=== PATIENT | female | born 1960 | race Caucasian/White ===

== ENCOUNTER 2016-09-09 09:00 | Day surgery (SDC) | payer BC ==
[2016-09-02 11:14] VITALS: BMI 31.4
--- NOTE | 2016-09-08 14:47 | HP ---
DATE OF ADMISSION: 09/09/2016 Siobhan Rodrigues is a 55-year-old patient seen with progressive symptomatic right carpal tunnel syndrome. After having treatment options discussed, she elected to proceed with decompression of right median nerve. Consent was obtained. Her past medical history is hypertension, gastroesophageal reflux disease. Past surgical history is tubal ligation, section, wisdom teeth extraction. Daily medications are: 1. Lisinopril-hydrochlorothiazide. 2. Tramadol. 3. Zantac. Allergies are IODINE, PENICILLIN, CECLOR, PREDNISONE. 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 Physical evaluation of the right hand: There is a positive carpal compression and carpal Tinel's causing numbness, tingling into the median nerve distribution. She has good range of motion of her wrist. Good perfusion distally, good radial pulse is present. Radiographs of her right wrist and hand reveal some mild osteoarthritic changes. An EMG of the right upper extremity revealed carpal tunnel syndrome. IMPRESSION: Right carpal tunnel syndrome. PLAN: Decompression of right median nerve.
[~2016-09-09 09:00] MED LIST: CLINDAMYCIN 900 MG in DEXTROSE 5% IN WATER 50 ML IVPB ONE; HYDROmorphone 1 MG/ML 1 ML SYRINGE IVP PRN; LACTATED RINGERS 1,000 ML IV SCH; MIDAZOLAM 2 MG/2 ML VIAL IV PRN; ONDANSETRON 4 MG/2 ML VIAL IVP ONE
[2016-09-09] MEDS ORDERED: LIDOCAINE 1% 20 ML VIAL (10MG/ML) FOR IV START INTRADERMA ONE (09:23)
[2016-09-09 09:31] VITALS: TEMP 98.5
[2016-09-09] MEDS ORDERED: SCOPOLAMINE 1.5MG/72HR PATCH TRANSDERM ONE (09:45)
[2016-09-09] MEDS ORDERED: CLINDAMYCIN 150 MG/ML 6 ML VIAL ONE (10:28)
[2016-09-09] MEDS ORDERED: DEXTROSE 5% IN WATER 50 ML BAG ONE (10:28)
[2016-09-09] MEDS ORDERED: PROPOFOL 10 MG/ML 20 ML VIAL IV ONE (10:28)
[2016-09-09] MEDS ORDERED: fentaNYL (PF) 50 MCG/ML 2 ML AMP ONE (10:28)
[2016-09-09] MEDS ORDERED: MIDAZOLAM 2 MG/2 ML VIAL ONE (10:28)
[2016-09-09] MEDS ORDERED: BUPIVACAINE (PF) 0.25% 30 ML VIAL SQ ONE (10:36)
--- NOTE | 2016-09-09 10:54 | P.OP ---
Date of Procedure: 09/09/16 Preoperative Diagnosis: Right carpal tunnel syndrome Postoperative Diagnosis: Same Procedure(s) Performed: Decompression right median nerve Anesthesia: MAC Surgeon: Daryrn Wild Estimated Blood Loss (ml): 1 Pathology: none sent Condition: stable Disposition: PACU Indications for Procedure: Patient seen with symptomatic right carpal tunnel syndrome. After having treatment options discussed, she elected to proceed with decompression right median nerve. Description of Procedure: Patient was taken to the operative suite. Patient underwent IV sedation by the department of anesthesia. A well-padded tourniquet was placed along the proximal right upper extremity. The right upper extremity was prepped and draped in the normal sterile orthopedic fashion. The proposed incision site was infiltrated with 10 mL quarter percent plain Marcaine. When sufficient local analgesia was noted the extremity was elevated and tourniquet insufflated to 250. I made an incision beginning at the distal volar wrist crease extending distally approximately 3 cm in line with the fourth metacarpal sharply through skin. Dissection was taken down through the subcu soft tissues down through the palmar fascia to the transverse carpal ligament. I incised the transverse carpal ligament. I made sure the release was completed proximally and distally blunt Metzenbaums. We had complete release of the median nerve. There was good hemostasis. The margins approximated suture. Sterile dressings were applied followed by loose web roll and Domenic bandage. The tourniquet was released with immediate capillary refill noted of all digits. Patient was taken to recovery in stable and satisfactory condition having entire procedure well.
[2016-09-09 11:49] VITALS: RESP 18
[2016-09-09 12:02] VITALS: BP 113/72; PULSE 63
== END 2016-09-09 12:18 | disposition home or self-care (01) ==
LOC: OR 09:00
PROVIDERS: ATTEND Orthopaedic Surgery
DX: G56.01 Carpal tunnel syndrome, right upper limb (principal); I10 Essential (primary) hypertension; K21.9 Gastro-esophageal reflux disease without esophagitis; Z88.0 Allergy status to penicillin; Z88.1 Allergy status to other antibiotic agents; Z91.041 Radiographic dye allergy status; Z88.8 Allergy status to other drugs, medicaments and biological substances; Z79.891 Long term (current) use of opiate analgesic; Z79.899 Other long term (current) drug therapy; Z98.51 Tubal ligation status
CPT/HCPCS: 64721; 81025; J2250; J2405; J3010; J2704; 99152; 99153

== ENCOUNTER → 2016-10-19 | Outpatient (CLI) | payer BC ==
--- NOTE | 2016-10-19 11:25 | MM ---
Reason for exam: additional evaluation requested from prior study. Last mammogram was performed 1 year and 1 month ago. History: Patient is postmenopausal. Physical Findings: Nurse did not find any significant physical abnormalities on exam. MG Diagnostic Mammo w CAD DEVAN Bilateral CC and MLO view(s) were taken. Prior study comparison: September 25, 2015, bilateral MG screening mammo w CAD. There are scattered fibroglandular densities. There is no discrete abnormality. These results were verbally communicated with the patient and result sheet given to the patient on 10/19/16. ASSESSMENT: Negative, BI-RAD 1 RECOMMENDATION: Routine screening mammogram of both breasts in 1 year.
== END | disposition home or self-care (01) ==
LOC: RADMAMWWP 10:12
PROVIDERS: ATTEND Family Medicine
DX: R92.8 Other abnormal and inconclusive findings on diagnostic imaging of breast (principal)

== ENCOUNTER → 2016-12-13 | Outpatient (CLI) | payer BC ==
[2016-12-13 14:04] LABS: Basophils % (A) 1 %; CH 27.9; CHCM 32.2; Eosinophils # (A) 0.1 k/uL (0-0.7); Eosinophils % (A) 1 %; HCT 36.9 % (34.0-46.0); HDW 2.47; HGB 12.4 gm/dL (11.4-16.0); Luc # (Auto) 0.13; Luc % (Auto) 3; Lymphocytes # (A) 1.7 k/uL (1.0-4.8); Lymphocytes % (A) 33 %; MCH 29.3 pg (25.0-35.0); MCHC 33.6 g/dL (31.0-37.0); MCV 87.1 fL (80.0-100.0); Mean Platelet Volume 7.3; Monocytes # (A) 0.2 k/uL (0-1.0); Monocytes % (A) 4 %; Neutrophils # (A) 2.9 k/uL (1.3-7.7); Neutrophils % (A) 59 %; RBC 4.23 m/uL (3.80-5.40); RDW 13.6 % (11.5-15.5); WBC (Perox) 5.49
== END | disposition home or self-care (01) ==
LOC: LABWHC1 13:17
PROVIDERS: ATTEND Orthopaedic Surgery
DX: Z01.812 Encounter for preprocedural laboratory examination (principal)
CPT/HCPCS: 36415; 85025

== ENCOUNTER 2017-01-06 08:02 | Day surgery (SDC) | payer BC ==
--- NOTE | 2017-01-05 17:27 | HP ---
DATE OF ADMISSION: 01/06/2017 Siobhan Rodrigues is a 56-year-old patient seen with symptomatic left carpal tunnel syndrome. We discussed treatment options. She elected to proceed with decompression of the left median nerve. Consent was obtained. Past medical history is hypertension. PAST SURGICAL HISTORY: Tubal ligation, section. DAILY MEDICATIONS: 1. Lisinopril/hydrochlorothiazide. 2. Tramadol. 3. Zantac. ALLERGIES: 1. IODINE. 2. PENICILLIN. 3. CECLOR. 4. PREDNISONE. SOCIAL HISTORY: Patient denies tobacco use. PHYSICAL EVALUATION OF LEFT HAND: She has good range of motion of the wrist and digits. No tenderness along the A1 mike areas. Positive carpal compression and carpal Tinel's causing numbness and tingling throughout the median nerve distribution. Good radial pulse is present. Radiographs of the left hand revealed mild osteoarthritis. EMG left upper extremity revealed carpal tunnel syndrome. IMPRESSION: Left carpal tunnel syndrome. PLAN: Decompression of the left median nerve.
[~2017-01-06 08:02] MED LIST changes: +CLINDAMYCIN 600 MG in DEXTROSE 5% IN WATER 50 ML IVPB ONE; -CLINDAMYCIN 900 MG in DEXTROSE 5% IN WATER 50 ML IVPB ONE; +LIDOCAINE 1% 20 ML VIAL (10MG/ML) FOR IV START INTRADERMA PRN; +SCOPOLAMINE 1.5MG/72HR PATCH TRANSDERM ONE
[2017-01-06 08:16] VITALS: RESP 16; TEMP 98.1
[2017-01-06] MEDS ORDERED: BUPIVACAINE (PF) 0.25% 30 ML VIAL SQ ONE (10:31)
[2017-01-06] MEDS ORDERED: fentaNYL (PF) 50 MCG/ML 2 ML AMP ONE (10:31)
[2017-01-06] MEDS ORDERED: LIDOCAINE 1% INJ 10MG/ML (20 ML MDV) ONE ×2 (10:31)
[2017-01-06] MEDS ORDERED: MIDAZOLAM 2 MG/2 ML VIAL ONE (10:31)
[2017-01-06] MEDS ORDERED: PROPOFOL 10 MG/ML 20 ML VIAL IV ONE (10:31)
--- NOTE | 2017-01-06 11:08 | P.OP ---
Date of Procedure: 01/06/17 Preoperative Diagnosis: Left carpal tunnel syndrome Postoperative Diagnosis: Left carpal tunnel syndrome Procedure(s) Performed: Decompression left median nerve Anesthesia: MAC, local Surgeon: Darryn Wild Estimated Blood Loss (ml): 1 Pathology: none sent Condition: stable Disposition: PACU Indications for Procedure: 56-year-old patient seen with symptomatic left carpal tunnel syndrome. After having treatment options discussed, she elected to proceed with decompression left median nerve. Operative Findings: see description of procedure Description of Procedure: The patient was taken to the operative suite. The patient underwent IV sedation by the department of anesthesia. A well-padded tourniquet was placed proximal left upper extremity. The left upper extremity was prepped and draped in the normal sterile orthopedic fashion. The patient received preoperative IV antibiotics. The proposed incision site was infiltrated with 10 mL quarter percent plain Marcaine. After appropriate analgesia was noted the tourniquet was insufflated to 250. I now made an incision beginning at the distal volar wrist crease extending 2.5 cm distally along the line of the fourth metacarpal. I dissected down through the subcutaneous soft tissues down to the palmar fascia. I dissected through the palmar fascia to the transverse carpal ligament. I now released the transverse carpal ligament centrally. I completed the release proximally and distally with blunt Metzenbaums. We had good complete decompression of the nerve and complete release of the transverse carpal ligament. There was good hemostasis. The wound was irrigated. The skin margins were approximate nylon suture. Sterile dressings were applied. Sterile web roll and Domenic bandage were applied. The tourniquet was released noting immediate capillary refill of all digits. The patient was awakened and transferred to recovery in stable condition.
[2017-01-06 11:35] VITALS: BP 106/65; PULSE 61
== END 2017-01-06 11:58 | disposition home or self-care (01) ==
LOC: OR 08:02
PROVIDERS: ATTEND Orthopaedic Surgery
DX: G56.02 Carpal tunnel syndrome, left upper limb (principal); I10 Essential (primary) hypertension; K21.9 Gastro-esophageal reflux disease without esophagitis; Z79.891 Long term (current) use of opiate analgesic; Z79.899 Other long term (current) drug therapy; Z88.1 Allergy status to other antibiotic agents; Z88.0 Allergy status to penicillin; Z88.8 Allergy status to other drugs, medicaments and biological substances; Z91.013 Allergy to seafood
CPT/HCPCS: 64721; J2250; J2405; J2001; J3010; J2704

== ENCOUNTER → 2017-11-04 | Outpatient (CLI) | payer BC ==
--- NOTE | 2017-11-04 11:29 | XR ---
EXAMINATION TYPE: XR Hip Complete LT DATE OF EXAM: 11/04/2017 CLINICAL HISTORY: Pain TECHNIQUE: AP and frogleg views of the left hip are obtained. COMPARISON: None. FINDINGS: There is complete loss of joint space. Protrusio acetabuli noted. Chronic labral tear susp ected. Deformity of the upper margin of the femoral head appears chronic. Osteitis symphysis pubis co ndensans noted. IMPRESSION: 1. Severe arthritic changes as discussed above with complete loss of joint space superiorly.
--- NOTE | 2017-11-04 11:30 | XR ---
EXAMINATION TYPE: XR knee limited LT DATE OF EXAM: 11/04/2017 COMPARISON: NONE HISTORY: Pain TECHNIQUE: Two views are submitted. FINDINGS: Joint spaces are preserved. Osseous structures are intact. No acute fracture seen. IMPRESSION: 1. No acute fracture or dislocation.
== END | disposition home or self-care (01) ==
LOC: RADXRMAIN 10:55
PROVIDERS: ATTEND Family Medicine
DX: M16.12 Unilateral primary osteoarthritis, left hip (principal); R93.7 Abnormal findings on diagnostic imaging of other parts of musculoskeletal system
CPT/HCPCS: 73502

== ENCOUNTER → 2018-03-03 | Outpatient (CLI) | payer BC ==
--- NOTE | 2018-03-07 08:21 | MM ---
Reason for exam: screening (asymptomatic). Last mammogram was performed 1 year and 4 months ago. History: Patient is postmenopausal. Physical Findings: A clinical breast exam by your physician is recommended on an annual basis and results should be correlated with mammographic findings. MG Screening Mammo w CAD Bilateral CC and MLO view(s) were taken. Prior study comparison: October 19, 2016, bilateral MG diagnostic mammo w CAD DEVAN. September 25, 2015, bilateral MG screening mammo w CAD. There are scattered fibroglandular densities. No significant changes when compared with prior studies. ASSESSMENT: Negative, BI-RAD 1 RECOMMENDATION: Routine screening mammogram of both breasts in 1 year.
== END | disposition home or self-care (01) ==
LOC: RADMAMWWP 08:15
PROVIDERS: ATTEND Family Medicine
DX: Z12.31 Encounter for screening mammogram for malignant neoplasm of breast (principal)
CPT/HCPCS: 77067

== ENCOUNTER → 2018-07-06 | Outpatient (CLI) | payer BC | LOC: LABPAT 17:10 | PROVIDERS: ATTEND Orthopaedic Surgery | DX: Z01.812 Encounter for preprocedural laboratory examination (principal) | CPT/HCPCS: 87070 ==

== ENCOUNTER → 2018-08-02 | Outpatient (CLI) | payer BC ==
--- NOTE | 2018-08-02 13:29 | XR ---
EXAMINATION TYPE: XR chest 2V DATE OF EXAM: 08/02/2018 COMPARISON: NONE TECHNIQUE: PA and lateral views submitted. HISTORY: Preop FINDINGS: The lungs are clear and there is no pneumothorax, pleural effusion, or focal pneumonia. Hypertrophi c and degenerative change of the spine and atherosclerotic change aorta. No overt failure. IMPRESSION: 1. No acute process.
== END | disposition home or self-care (01) ==
LOC: RADXRMAIN 11:43
PROVIDERS: ATTEND Family Medicine
DX: Z01.818 Encounter for other preprocedural examination (principal)
CPT/HCPCS: 71046

== ENCOUNTER 2018-08-08 06:24 | Inpatient (IN) | payer BC ==
[2018-08-02 09:04] VITALS: BMI 29.5
--- NOTE | 2018-08-07 09:35 | HP ---
HISTORY AND PHYSICAL CHIEF COMPLAINT: Left hip pain. 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 She notes groin pain that bothers her with weightbearing activities and at night. She notes she significantly limps. Her activities are severely limited because of pain. She has tried medications with minimal relief. PAST MEDICAL HISTORY: Significant for hypertension and arthritis. PAST SURGICAL HISTORY: Significant for vocal cord surgery, carpal tunnel release, tubal ligation and section. CURRENT MEDICATIONS: 1. Lisinopril. 2. Zantac. 3. Lasix. ALLERGIES: She notes allergies to IODINE, PENICILLIN, CECLOR, and PREDNISONE. FAMILY HISTORY: Significant for heart disease, cancer, hypertension, and diabetes. SOCIAL HISTORY: Negative for current tobacco or alcohol use. REVIEW OF SYSTEMS: Sixteen-point review of systems otherwise reviewed and is noncontributory. PHYSICAL EXAMINATION: On examination, the patient is approximately 5 feet 4 inches, 183 pounds of mesomorphic habitus. HEENT exam is nonfocal. Neck is supple. Passive motion left hip, flexion 65 degrees, external rotation with the hip flexed 55 degrees, internal rotation is minus 10 with pain. Clinically, she has got 1 cm shortening left lower extremity compared to the right. She has a mildly antalgic gait pattern. Her distal neurovascular exam appears intact in the left lower extremity. X-rays to include AP and lateral views of the left hip obtained in the office show severe osteoarthrosis with [id number] changes. There is a large superior acetabular cyst. IMPRESSION: Left hip severe osteoarthrosis-symptomatic. RECOMMENDATIONS: I talked to the patient at length regarding her condition and treatment options. At this point, she is quite limited because of pain related to her osteoarthrosis despite conservative measures. After thorough discussion, she opts to proceed with surgery. We will plan to proceed with left total hip arthroplasty with anterior approach. We will institute DVT prophylaxis postoperatively. The patient underwent preoperative medical evaluation and clearance by Dr. Stuart. RACHEL / ELO: [id number] /
[~2018-08-08 06:24] MED LIST changes: +ACETAMINOPHEN TAB 500 MG TAB PO ONE; -CLINDAMYCIN 600 MG in DEXTROSE 5% IN WATER 50 ML IVPB ONE; +CLINDAMYCIN 900 MG in DEXTROSE 5% IN WATER 50 ML IVPB ONE; +DEXAMETHASONE SOD PHOSPHATE 10 MG/ML 1 ML VIAL IV ONE; +HYDROmorphone 0.5 MG/0.5 ML SYRINGE IVP PRN; -HYDROmorphone 1 MG/ML 1 ML SYRINGE IVP PRN; -LACTATED RINGERS 1,000 ML IV SCH; +MELOXICAM 7.5 MG TAB PO ONE; -MIDAZOLAM 2 MG/2 ML VIAL IV PRN; +TRANEXAMIC ACID 1,000 MG in SODIUM CHLORIDE 0.9% 50 ML IVPB ONE
[2018-08-08] MEDS: LACTATED RINGERS 1,000 ML IV SCH (07:12)
[2018-08-08] MEDS ORDERED: GLYCOPYRROLATE 0.2 MG/ML 2 ML VIAL ONE (07:55)
[2018-08-08] MEDS ORDERED: PROPOFOL 10 MG/ML 20 ML VIAL IV ONE (07:55)
[2018-08-08] MEDS ORDERED: HEPARIN SODIUM,PORCINE 10,000 UNIT/ML 1 ML VIAL ONE (07:55)
[2018-08-08] MEDS ORDERED: ePHEDrine SULFATE/0.9% NACL/PF 50 MG/5 ML SYRINGE IV ONE (07:55)
[2018-08-08] MEDS ORDERED: SODIUM CHLORIDE 0.9% 100 ML BAG ONE (07:55)
[2018-08-08] MEDS ORDERED: MIDAZOLAM 2 MG/2 ML VIAL ONE (07:55)
[2018-08-08] MEDS ORDERED: LACTATED RINGERS 1,000 ML BAG IV ONE (07:55)
[2018-08-08] MEDS ORDERED: fentaNYL (PF) 50 MCG/ML 2 ML AMP ONE (07:55)
[2018-08-08] MEDS ORDERED: TRANEXAMIC ACID 1,000 MG/10 ML VIAL ONE (07:55)
[2018-08-08] MEDS ORDERED: CLINDAMYCIN 1,800 MG in SODIUM CHLORIDE 0.9% IRRIGATIO 3,000 ML IRRIGATION ONE (08:42)
[2018-08-08] MEDS ORDERED: LACTATED RINGERS 1,000 ML IV ONE (09:16)
[2018-08-08] MEDS ORDERED: HYDROcodone/APAP 7.5-325MG 1 EACH TAB PO PRN (10:07)
[2018-08-08] MEDS ORDERED: ONDANSETRON 4 MG/2 ML VIAL IVP PRN (10:07)
[2018-08-08] MEDS ORDERED: NALOXONE 0.4 MG/ML 1 ML VIAL IV PRN (10:07)
[2018-08-08] MEDS ORDERED: HYDROmorphone 1 MG/ML 1 ML SYRINGE IVP PRN ×2 (10:07)
[2018-08-08] MEDS ORDERED: MAGNESIUM HYDROXIDE 2,400 MG/10 ML CUP PO PRN (10:07)
--- NOTE | 2018-08-08 10:35 | P.OP ---
Date of Procedure: 08/08/18 Preoperative Diagnosis: Left hip severe osteoarthrosis Postoperative Diagnosis: Same Procedure(s) Performed: Left total hip arthroplastyanterior approach Implants: Depuy Corail was 11 standard collared femoral stem, 32 mm +1 ceramic femoral head, 52 mm Hannibal acetabular shell with neutral polyethylene liner. Anesthesia: spinal Surgeon: Jose Avendano Senior Process Control Tech #1: Philipp Reyna Estimated Blood Loss (ml): 400 Pathology: other (Femoral head) Condition: stable Disposition: PACU Indications for Procedure: The patient is a 57-year-old female who presents with progressive left hip pain secondary to osteoarthrosis despite conservative measures. A discussion of the risks and benefits of operative intervention versus continued conservative measures was made with the patient. She opted to proceed with surgery. Operative risks to include infection, neurovascular injury, development of blood clots, possible fracture, possible leg length discrepancy, possible instability and need for subsequent procedures was discussed. Informed consent was obtained. Operative Findings: As below Description of Procedure: The patient was brought to the operating room, and after induction of spinal anesthesia was placed supine on the Rosa Isela table. Positioning was checked with fluoroscopy. The left hip was then prepped and draped in a normal fashion. A 12 cm incision was then made starting 2 fingerbreadths distal and 3 finger breaths posterior to the ASIS in line with the proximal femur. The skin was incised sharply. Subcutaneous tissues were divided sharply. Electrocautery was used for hemostasis. The fascia was split in line with skin incision. The interval between the sartorius and tensor fascia scooter was then bluntly developed. The posterior fascia was opened with electrocautery. The lateral circumflex vessels were identified and cauterized prior to sectioning. A retractor was placed along the superior femoral neck as well as the anterior acetabular rim. A wide capsulotomy was performed. The neck cut was then made at a 45 angle to the shaft approximately 1 1/2 cm above the level of the lesser trochanter. The head was extracted. Attention was then paid towards preparing the acetabular. Anterior and posterior retractors were placed. The remaining capsular labral tissue sharply debrided clearly defining the acetabular margins. I began reaming with a 45 mm reamer taking care to initially medialize then reaming at 45 of abduction and 20 of anteversion. Sequential reaming is performed up to 51 mm. A trial 52 mm acetabular shell was inserted in the same orientation and was fully seated. There was good rim fit and stability. Positioning was checked with fluoroscopy. The final 52 mm acetabular shell was inserted again at 45 of abduction and 20 of anteversion. This was fully seated. There was good rim fit and stability. Again fluoroscopy was used to check the adequacy of placement. A neutral polyethylene liner was gently impacted. Care was taken to avoid any soft tissue interposition. Pulsatile lavage was utilized. Attention was then paid towards preparing the proximal femur. The central region was cleared of soft tissue. A canal finder was used to find the femoral canal. Sequential broaching was performed up to size 11 taking care to lateralize proximally. A calcar mill was used to fashion the medial calcar. There was good rotational stability. A standard neck along with a 32 mm +1 femoral head was placed. The hip was gently reduced. Fluoroscopy was used to check the adequacy of positioning along with leg lengths. I felt both were good. The hip was gently dislocated. The trial components were removed. The final size 11 collared standard press-fit femoral stem was inserted parallel to the posterior cortex. This was fully seated and there was good rotational stability. A 32 mm +1 ceramic femoral head was placed. This was gently impacted. The hip was then gently reduced. Final fluoroscopic view showed adequate placement implant along with congregational of leg length. Stability was checked with 80 of external rotation and 60 of extension of the right hip. The wound was irrigated with pulsatile lavage. The fascia was closed with running 0 Vicryl suture. There was minimal drainage therefore a deep drain was not placed. The second dose of IV TXA was given. The subcutaneous tissues were reapproximated interrupted 2-0 Vicryl sutures. The skin was reapproximated with 3-0 subcuticular strata fix suture. Skin tape and adhesive was applied. A sterile dressing was applied. The patient was then awoken from sedation and transferred to recovery room in good condition. Blood loss was estimated at 400 mL. Cell Saver was given back. No complications were incurred. Sponge and needle counts were correct at the end of the case. Elfego GRAVES assisted during the major components is case to include exposure, bone resection, implantation, and closure.
--- NOTE | 2018-08-08 11:19 | XR ---
EXAMINATION TYPE: XR Hip Limited LT DATE OF EXAM: 08/08/2018 CLINICAL HISTORY: Postoperative evaluation TECHNIQUE: Single portable view of the left hip was submitted. FINDINGS: Noted are changes of total hip arthroplasty with femoral and acetabular components appearin g well seated. Alignment is anatomic. Postsurgical soft tissue changes are evident. IMPRESSION: Satisfactory postoperative alignment
[2018-08-08] MEDS: HYDROcodone/APAP 7.5-325MG 1 EACH TAB PO PRN (11:26)
--- NOTE | 2018-08-08 11:52 | XR ---
EXAMINATION TYPE: XR Hip Limited LT DATE OF EXAM: 08/08/2018 COMPARISON: NONE HISTORY: Postop TECHNIQUE: One view submitted. FINDINGS: There is postsurgical change in near anatomic alignment. There is soft tissue edema and emphysema. IMPRESSION: 1. Postoperative change. Appears in near-anatomic alignment.
--- NOTE | 2018-08-08 11:53 | FL ---
EXAMINATION TYPE: FL guidance operating room DATE OF EXAM: 08/08/2018 HISTORY: Flouroscopy time 22 seconds of fluoroscopy provided. IMPRESSION: 1. Fluoroscopy time.
[2018-08-08] MEDS: traMADol 50 MG TAB PO SCH ×3 (12:46→22:55)
[2018-08-08] MEDS ORDERED: FAMOTIDINE 20 MG TAB PO PRN (13:22)
[2018-08-08] MEDS: CHOLECALCIFEROL 1,000 UNIT TAB PO SCH (14:56)
[2018-08-08] MEDS: LISINOPRIL-HCTZ 20-25 MG 1 EACH TAB PO SCH (14:56)
[2018-08-08] MEDS: TRIAMCINOLONE ACET 0.1% OINTMENT 15 GM TUBE TOPICAL SCH (14:57)
[2018-08-08] MEDS: MAGNESIUM OXIDE 400 MG TAB PO SCH (14:57)
[2018-08-08] MEDS: CLINDAMYCIN 900 MG in DEXTROSE 5% IN WATER 50 ML IVPB SCH ×4 (16:27→23:53)
[2018-08-08] MEDS ORDERED: SENNOSIDES-DOCUSATE SODIUM 1 EACH TAB PO SCH (21:00)
--- NOTE | 2018-08-08 23:17 | CONS ---
CONSULTATION DATE OF CONSULTATION: 08/08/2018 REASON FOR CONSULTATION: Medical management requested by Dr. Avendano. CONSULTATION: This is a 57-year-old patient of Dr. Stuart. Undergone a left total hip arthroplasty. Postop pain is controlled. No nausea, vomiting. Has been up. Chronic stable medical conditions include GERD, hypertension, osteoarthritis, anxiety. No chest pain, short of breath. Did tolerate her meal. REVIEW OF SYSTEMS: CONSTITUTIONAL: None. HEENT: None. RESPIRATORY: None. CARDIOVASCULAR none. GASTROINTESTINAL: Occasional heartburn. GENITOURINARY none. MUSCULOSKELETAL: Arthritic pain also in the knees. DERMATOLOGICAL: None. HEMATOLOGICAL: None. LYMPHATICS: None. PSYCHIATRY: Anxiety controlled. NEUROLOGICAL none. PAST MEDICAL HISTORY: GERD, hypertension, osteoarthritis, anxiety. PAST SURGICAL HISTORY: , tubal ligation, nodes removed from vocal cords, decompression right median nerve. SOCIAL HISTORY: Patient lives by herself. 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 Does not smoke. Alcohol occasionally. FAMILY HISTORY: Of cancer type unknown. HOME MEDICATIONS: 1. Vitamin B complex 1 tablet p.o. daily. 2. Zantac 75 mg q.h.s. p.r.n. 3. Potassium 99 mg p.o. daily. 4. 450 mg p.o. daily. 5. Kelayres-3 1000 mg p.o. daily. 6. Women's multivitamin 1 on Tuesday, Tuesday and Tuesday. 7. Magnesium oxide 250 mg a day. 8. Zestoretic 1 tablet p.o. daily. 9. Motrin. 10.Hydrocortisone 2.5% topical daily. 11.Cranberry 2 tablets p.o. daily. 12.Vitamin D3 1000 units p.o. daily. 13. tab 1 tablet p.o. daily. 14.Aspirin 81 mg p.o. daily. 15.Tylenol Arthritis p.r.n. ALLERGIES: AMOXICILLIN, ASPIRIN, CECLOR, IODINE, PENICILLIN, PREDNISONE AND SHELLFISH. EXAMINATION: Afebrile, pulse 61, respirations 16, blood pressure 116/74. GENERAL APPEARANCE: Average built, sitting up in a chair. Comfortable. EYES: Pupils equal. Conjunctivae normal. HEENT: External appearance of nose and ears normal. Oral cavity normal. NECK: JVD not raised. Mass not palpable. RESPIRATORY: Effort normal. LUNGS are clear. CARDIOVASCULAR: 1st and 2nd sounds normal. No edema. ABDOMEN: Soft, nontender. Liver and spleen not palpable. LYMPHATICS: No lymph nodes palpable in neck or axillae. PSYCHIATRY: Alert and oriented x3. Mood and affect normal. NEUROLOGICAL: Pupils equal. Cranial nerves grossly intact. Power and sensation grossly intact. MUSCULOSKELETAL: Evidence of osteoarthritis especially in the hands. INVESTIGATIONS: Blood work from August 04, 2018 shows a white count of 4.3, hemoglobin 11.4, platelets of 198. ASSESSMENT: 1. Left total hip arthroplasty. 2. Gastroesophageal reflux disease. 3. Essential hypertension. 4. Primary osteoarthritis also of the knees. 5. Anxiety not otherwise specified. PLAN: Home medications are resumed. Pain control is in place. The patient's antibiotic prophylaxis clindamycin. For DVT prophylaxis, patient is on Xarelto. Care was discussed with the patient. Questions answered. Thank you Dr. Avendano. Copy to Dr. Stuart. MMODL / IJN: [id number] /
[2018-08-09 01:44] VITALS: TEMP 97.8
[2018-08-09 07:19] VITALS: BP 96/55; PULSE 63; RESP 16
[2018-08-09] MEDS: LACTATED RINGERS 1,000 ML IV SCH (08:12)
[2018-08-09] MEDS: traMADol 50 MG TAB PO SCH ×2 (08:14→12:51)
[2018-08-09] MEDS: MAGNESIUM OXIDE 400 MG TAB PO SCH (08:14)
[2018-08-09] MEDS: CHOLECALCIFEROL 1,000 UNIT TAB PO SCH (08:14)
[2018-08-09] MEDS: TRIAMCINOLONE ACET 0.1% OINTMENT 15 GM TUBE TOPICAL SCH (08:15)
[2018-08-09] MEDS: LISINOPRIL-HCTZ 20-25 MG 1 EACH TAB PO SCH (08:16)
[2018-08-09] MEDS ORDERED: RIVAROXABAN 10 MG TAB PO SCH (09:00)
[2018-08-09 09:09] LABS: Basophils % (A) 0 %; Eosinophils % (A) 1 %; HCT 26.3 % (34.0-46.0); Lymphocytes # (A) 1.4 k/uL (1.0-4.8); Lymphocytes % (A) 26 %; MCH 28.2 pg (25.0-35.0); MCHC 32.4 g/dL (31.0-37.0); MCV 87.2 fL (80.0-100.0); Mean Platelet Volume 7.6; Monocytes # (A) 0.3 k/uL (0-1.0); Monocytes % (A) 5 %; Neutrophils # (A) 3.6 k/uL (1.3-7.7); Neutrophils % (A) 67 %; Platelet Count 176 k/uL (150-450); RBC 3.01 m/uL (3.80-5.40); RDW 13.8 % (11.5-15.5); WBC 5.4 k/uL (3.8-10.6)
[2018-08-09 09:15] LABS: HGB 8.5 gm/dL (11.4-16.0)
[2018-08-09] MEDS ORDERED: LACTATED RINGERS 1,000 ML IV SCH (11:45)
--- NOTE | 2018-08-09 11:45 | P.PN ---
Subjective Progress Note Date: 08/09/18 Principal diagnosis: Status post left total hip arthroplasty Patient is seen today resting in her hospital bed, she appears comfortable. Her pain is well-controlled. Her blood pressure was a little yesterday and into today. He denies any chest pain or shortness of breath. Objective - Vital Signs Vital signs: Vital Signs Temp 97.8 F 08/09/18 07:00 Pulse 63 08/09/18 07:00 Resp 16 08/09/18 07:00 BP 96/55 08/09/18 07:00 Pulse Ox 100 08/09/18 07:00 Intake & Output 08/08/18 08/09/18 08/09/18 18:59 06:59 18:59 Intake Total 2227 750 Output Total 400 Balance 1827 750 Weight 78.018 kg Intake: IV 1307 Intake, IV Titration 900 750 Amount Clindamycin 900 mg In 50 Dextrose 5% in Water 50 ml @ 50 mls/hr IVPB Q8HR DENISE Rx#:[id number] Lactated Ringers 1,000 ml 900 700 @ 70 mls/hr IV .[id number] DENISE Rx#:[id number] Oral 20 Output: Estimated Blood Loss 400 Other: # Voids 1 - Exam Left lower extremity: Incision is clean, dry, and intact. The exofin fusion tape is in good condition. There is minimal soft tissue swelling and ecchymosis surrounding the medial and lateral aspects of the incision. Calf is soft, no tenderness with palpation. Plantar flexion, dorsiflexion, EHL, FHL are intact. Sensory exam to light touch throughout the extremity is intact, dorsal pedis pulses 2+. - Labs CBC & Chem 7: 08/09/18 07:29 Labs: Abnormal Lab Results - Last 24 Hours (Table) 08/09/18 Range/Units 07:29 RBC 3.01 L (3.80-5.40) m/uL Hgb 8.5 L D (11.4-16.0) gm/dL Hct 26.3 L (34.0-46.0) % Assessment and Plan Plan: Assessment: Postoperative day #1 status post left total hip arthroplasty. Acute blood loss anemia, expected from surgery Plan: Pain control, we'll discharge home on oral medication GI and DVT prophylaxis, Eliqui 2.5mg bid for 12 days Wound care was discussed Home physical therapy and nursing after discharge Medical recommendations 500 mL LR fluid boluses to be given, we'll likely discharge patient home on oral iron. Discharge planning: Depending on patient's symptoms after lunch and ambulate with therapy, plan for discharge home today Time with Patient: Less than 30
[2018-08-09] MEDS ORDERED: MULTIVITAMINS, THERA 1 EACH TAB PO SCH (12:00)
[2018-08-09] MEDS: HYDROcodone/APAP 7.5-325MG 1 EACH TAB PO PRN (12:55)
--- NOTE | 2018-08-09 13:01 | P.DS ---
Providers Date of admission: 08/08/18 06:24 Attending physician: Jose Avendano Consults: 08/08/18 10:10 Consult Physician Routine Consulting Provider: Sridhar Triplett Consult Reason/Comments: Medical Management Do you want consulting provider notified?: Yes Primary care physician: Zurdo Stuart [facility] Course: Date of admission: 08/08/2018 Date of discharge: 08/09/2018 Admission diagnosis: Status post left total hip arthroplasty Discharge diagnosis: Same Attending physician: Dr. Avendano Surgical procedures: Left total hip arthroplasty Brief history: Patient is a 57-year-old female with a history of progressive primary left hip osteoarthritis. At this point patient has failed conservative treatment measures and has opted to proceed with a elective left total hip arthroplasty. Hospital course: Details of patient's surgery can be found in operative report. Patient tolerated the procedure well and was subsequently transported to orthopedic floor. Patient's orthopeidc and medical care was provided daily. Patient had daily laboratory tests performed for evaluation of overall blood counts. Patient had daily physical therapy to include strengthening range of motion as well as education with walker ambulation. Patient was treated with Xarelto for their postoperative DVT prophylaxis during their inpatient stay. Patient was noted to have a relatively uneventful postoperative course. Patient reported satisfactory pain control with oral pain medications by postoperative day 0. Patient showed satisfactory progress with physical therapy. Patient moved steadily through the program and had no difficulty meeting the goals by postoperative day 1. Given patient's otherwise satisfactory course and having met physical therapy goals, plan is to discharge patient [home] on postoperative day 1. Discharge condition/disposition: Patient will be discharged home in stable condition. Discharge medications: Instructions are given on resumption of patient's normal daily medications per primary care recommendation, in addition patient will be prescribed [place] 7.5 mg/325 mg, tramadol 50 mg, Colace 100 mg, Eliquis 2.5mg, Ferrous Sulfate 325mg. Discharge instructions: 1. Wound care and infection precautions, keep incision dry and covered while showering, no lotions, creams, moisturizers. No soaking, tubs, pools, hottubs. Do not scrub over the incision. 2. Weight-bear as tolerated with walker / cane until follow-up. 3. Ice and elevate when necessary. Do not exceed 20 minutes per hour with ice pack. 4. Utilize compression sleeve until seen at first follow up appointment. 5. Visiting nursing care. 6. Home physical therapy. 7. Pain meds and anticoagulants per prescription. 8. Pain medication has potential to cause constipation. Increase oral fluid and fiber intake. Contact primary care provider if you have not had a bowel movement within 48 hours after discharge 9. No anti-inflammatory medication until discussed at first post operative visit, this including Motrin, Aleve, Mobic, Diclofenac. 10. Follow up in office at 2 weeks postop with Elfego Reyna PA-C 11. Follow up with your primary care doctor 7-10 days after discharge. 12. Contact [facility] with any questions, . Procedures: Left total hip arthroplasty Patient Condition at Discharge: Good Plan - Discharge Summary Discharge Rx Participant: No New Discharge Prescriptions: New Docusate [Colace] 100 mg PO DAILY #30 capsule Ferrous Sulfate [Feosol] 325 mg PO BID #40 tab HYDROcodone/APAP 7.5-325MG [[place] 7.5] 1 - 2 each PO Q6HR PRN #40 tab PRN Reason: Pain traMADol HCl [Ultram] 50 mg PO Q6H PRN #28 tab PRN Reason: Pain Apixaban [Eliquis] 2.5 mg PO BID #56 tab Continue Ranitidine HCl [Zantac] 75 mg PO HS PRN PRN Reason: gerd Cholecalciferol [Vitamin D3] 1,000 unit PO DAILY Hydrocortisone Oint [Hydrocortisone 2.5% Oint] 1 applic TOPICAL DAILY Vitamin B Complex 1 each PO DAILY Potassium 99 mg PO DAILY Multivit with Calcium,Iron,Min [Women's Multivitamin] 1 each PO MOWEFR Magnesium Oxide [Mag-Ox] 250 mg PO DAILY Discontinued Lisinopril-Hctz 20-25 mg [Zestoretic 20-25] 1 tab PO DAILY Aspirin 81 mg PO DAILY Acetaminophen [Tylenol Arthritis] 650 mg PO Q4-6H PRN PRN Reason: Pain Ibuprofen [Motrin] 600 mg PO Q6HR PRN PRN Reason: Pain No Action Plant Stanol Azul [Cholest Off] 450 mg PO DAILY Cranberry Fruit Concentrate [Cranberry] 2 tab PO DAILY Cartilage/Collagen/Bor/Hyalur [Move Free Ultra Tablet] 1 each PO DAILY Otter-3 Fatty Acids [Otter-3] 1,000 mg PO DAILY Discharge Medication List Plant Stanol Azul [Cholest Off] 450 mg PO DAILY 09/02/16 [History] Ranitidine HCl [Zantac] 75 mg PO HS PRN 09/02/16 [History] Cartilage/Collagen/Bor/Hyalur [Move Free Ultra Tablet] 1 each PO DAILY 01/04/17 [History] Cholecalciferol [Vitamin D3] 1,000 unit PO DAILY 01/04/17 [History] Cranberry Fruit Concentrate [Cranberry] 2 tab PO DAILY 01/04/17 [History] Hydrocortisone Oint [Hydrocortisone 2.5% Oint] 1 applic TOPICAL DAILY 01/04/17 [ History] Magnesium Oxide [Mag-Ox] 250 mg PO DAILY 01/04/17 [History] Multivit with Calcium,Iron,Min [Women's Multivitamin] 1 each PO MOWEFR 01/04/17 [History] Potassium 99 mg PO DAILY 01/04/17 [History] Vitamin B Complex 1 each PO DAILY 01/04/17 [History] Otter-3 Fatty Acids [Otter-3] 1,000 mg PO DAILY 08/02/18 [History] Apixaban [Eliquis] 2.5 mg PO BID #56 tab 08/09/18 [Rx] Docusate [Colace] 100 mg PO DAILY #30 capsule 08/09/18 [Rx] Ferrous Sulfate [Feosol] 325 mg PO BID #40 tab 08/09/18 [Rx] HYDROcodone/APAP 7.5-325MG [[place] 7.5] 1 - 2 each PO Q6HR PRN #40 tab 08/09/18 [ Rx] traMADol HCl [Ultram] 50 mg PO Q6H PRN #28 tab 08/09/18 [Rx] Follow up Appointment(s)/Referral(s): [facility], [NON-STAFF] - Zurdo Stuart DO [Primary Care Provider] - 1 Week Philipp Reyna PAC [PHYSICIAN INSTRUCTIONAL SPECIALIST] - 2 Weeks Patient Instructions/Handouts: Anterior Hip Replacement (DC) Activity/Diet/Wound Care/Special Instructions: Orthopedic Discharge Instructions: 1. Wound care and infection precautions, keep incision dry and covered while showering, no lotions, creams, moisturizers. No soaking, pools, hot tubs. Do not scrub over incision. 2. Weight-bear as tolerated with walker / cane until follow-up. 3. Ice and elevate when necessary. Do not exceed 20 minutes per hour with ice pack. 4. Utilize compression sleeve until seen at first follow up appointment. 5. Pain meds and anticoagulants per prescription. 6. Pain medication has potential to cause constipation. Increase oral fluid and fiber intake. Contact primary care provider if you have not had a bowel movement within 48 hours after discharge. 7. No anti-inflammatory medication until discussed at first post operative visit, this including Motrin, Aleve, Mobic, Diclofenac, Aspirin. 8. Follow up in office at 2 weeks postop with Elfego Reyna PA-C 9. Follow up with your primary care doctor 7-10 days after discharge. 10. Contact [facility] with any questions, . check BP daily. hold zestoretic/resume when systolic BP >130 Discharge Disposition: HOME WITH HOME HEALTH SERVICES
--- NOTE | 2018-08-09 22:30 | PN ---
PROGRESS NOTE DATE OF SERVICE: 08/09/2018 PRESENTING COMPLAINT: Left hip surgery. INTERVAL HISTORY: Patient is status post left hip arthroplasty. Blood pressure is running a bit low this morning. Did get some fluid bolus. The patient has been asymptomatic, up and about. No dizziness. No lightheadedness. Did tolerate her breakfast. There was a drop in hemoglobin, but again patient has not been symptomatic. Feels well. REVIEW OF SYSTEMS: Done for constitutional, cardiovascular, GI, pulmonary; relevant findings as above. CURRENT MEDICATIONS: Reviewed. PHYSICAL EXAMINATION: VITAL SIGNS: Temperature 97.8, pulse 63, respiration 16, blood pressure 96/55, pulse ox 100 percent. GENERAL APPEARANCE: Sitting up, comfortable. EYES: Pupils equal, conjunctivae normal. NECK: JVD not raised. Mass not palpable. RESPIRATORY: Effort normal. LUNGS are clear. CARDIOVASCULAR: 1st and 2nd sounds normal. No edema. ABDOMEN: Soft, nontender. Liver and spleen not palpable. PSYCHIATRY: Alert and oriented x3. Mood and affect normal. INVESTIGATIONS: Hemoglobin 8.5. ASSESSMENT: 1. Left total hip arthroplasty. 2. Gastroesophageal reflux disease. 3. Hypotension from blood loss, though asymptomatic. Primary osteoarthritis of the knees. 1. Anxiety not otherwise specified. 2. Acute blood loss anemia as expected from surgery. PLAN: As the patient has remained asymptomatic, no need for any blood transfusion. The patient's antihypertensive has been held. The patient used to take blood pressure daily. When the systolic blood pressure goes above 130, then she may resume her same. The patient also follows with family doctor. Thank you Dr. Avendano. MMODL / IJN: [id number] /
== END 2018-08-09 17:11 | disposition home health service (06) | DRG 470 ==
LOC: 2ORMAIN 06:24 → 4SSUR 10:15
PROVIDERS: ADMIT Orthopaedic Surgery; ATTEND Orthopaedic Surgery
PROC: 0SRB04A Replacement of Left Hip Joint with Ceramic on Polyethylene Synthetic Substitute, Uncemented, Open Approach (ICD-10-PCS; principal; 2018-08-08 08:00)
DX: M16.12 Unilateral primary osteoarthritis, left hip (principal); D62 Acute posthemorrhagic anemia; F41.9 Anxiety disorder, unspecified; I10 Essential (primary) hypertension; K21.9 Gastro-esophageal reflux disease without esophagitis; M17.0 Bilateral primary osteoarthritis of knee; Z79.82 Long term (current) use of aspirin; Z82.49 Family history of ischemic heart disease and other diseases of the circulatory system; Z83.3 Family history of diabetes mellitus; Z79.899 Other long term (current) drug therapy; Z88.0 Allergy status to penicillin; Z88.8 Allergy status to other drugs, medicaments and biological substances; Z88.1 Allergy status to other antibiotic agents; Z91.041 Radiographic dye allergy status; Z91.013 Allergy to seafood
CPT/HCPCS: 36415; 73501; 85025; 86850; 86891; 86900; 86901; 88300

== ENCOUNTER → 2018-08-18 | Outpatient (CLI) | payer BC ==
--- NOTE | 2018-08-18 16:52 | US ---
EXAMINATION TYPE: US venous doppler duplex LE LT DATE OF EXAM: 08/18/2018 4:39 PM COMPARISON: NONE CLINICAL HISTORY: R60.0 Localized edema. Left leg pain and edema, left hip replacement 08/08/18 SIDE PERFORMED: Left TECHNIQUE: The lower extremity deep venous system is examined utilizing real time linear array sonog mick with graded compression, doppler sonography and color-flow sonography. VESSELS IMAGED: External Iliac Vein (EIV) Common Femoral Vein Deep Femoral Vein Greater Saphenous Vein * Femoral Vein Popliteal Vein Small Saphenous Vein * Proximal Calf Veins (* superficial vessels) Left Leg: No evidence of DVT as visualized IMPRESSION: Normal left leg duplex venous sonogram.
== END | disposition home or self-care (01) ==
LOC: RADUSWWP 16:12
PROVIDERS: ATTEND Family Medicine
DX: R60.0 Localized edema (principal)

== ENCOUNTER → 2022-09-17 | Outpatient (CLI) | payer BC ==
--- NOTE | 2022-09-17 15:13 | XR ---
EXAMINATION TYPE: XR Hip Complete RT DATE OF EXAM: 09/17/2022 3:06 PM INDICATION: Patient age:Female; 61 years old; Reason for study: M25.551 Pain in Rt Hip; PHH. COMPARISON: Pelvic radiograph 12/11/2018 TECHNIQUE: The right hip was examined in the frontal and lateral projections. FINDINGS: No acute fracture or dislocation. No aggressive osseous lesion. Mild medial joint space vicky rowing with acetabular sclerosis and marginal osteophytosis of the right hip. No joint effusion or so ft tissue swelling. IMPRESSION: 1. No acute osseous pathology. 2. Mild osteoarthritic changes of the right hip.
== END | disposition home or self-care (01) ==
LOC: RADXRMAIN 14:53
PROVIDERS: ATTEND Family Medicine
DX: M16.11 Unilateral primary osteoarthritis, right hip (principal); M25.551 Pain in right hip
CPT/HCPCS: 73502

== ENCOUNTER → 2023-10-31 | Outpatient (CLI) | payer BC ==
--- NOTE | 2023-10-31 15:12 | XR ---
EXAMINATION TYPE: XR lumbar spine 2 or 3V DATE OF EXAM: 10/31/2023 3:03 PM CLINICAL INDICATION:Female, 62 years old with history of M79.604 PAIN RT LEG, M79.605 PAIN IN LT LEG; PHH COMPARISON: None TECHNIQUE: XR lumbar spine 2 or 3V - Frontal, lateral and coned in L5-S1 lateral views of the spine. FINDINGS: No evidence of any acute osseous pathology. No evidence of loss of vertebral body height i s seen. There is grade 1 anterolisthesis of L4 on L5 Alignment of the lumbar vertebral bodies. Mild s cattered disc space narrowing. Multilevel marginal osteophyte formation throughout the visualized spi ne. There is facet joint arthropathy throughout the spine. Scattered at least mild neural foraminal s tenosis. IMPRESSION: 1. No acute fracture. 2. Mild to moderate multilevel disc degeneration. 3. Grade 1 anterolisthesis of L4 and L5.
== END | disposition home or self-care (01) ==
LOC: RADXRMAIN 14:45
PROVIDERS: ATTEND Family Medicine
DX: M51.36 Other intervertebral disc degeneration, lumbar region (principal); M43.16 Spondylolisthesis, lumbar region; M79.604 Pain in right leg; M79.605 Pain in left leg
CPT/HCPCS: 72100

== ENCOUNTER → 2023-11-08 | Outpatient (CLI) | payer BC ==
[2023-11-08 17:46] LABS: C Reactive Protein <0.30 mg/dL (0.00-0.80); Rheumatoid Factor, Qnt <15 IU/mL (0-15)
[2023-11-09 10:01] LABS: HLA B27 NEGATIVE
[2023-11-09 11:45] LABS: Angiotensin-1 Converting Enz. 5 U/L (8-52)
[2023-11-09 14:22] LABS: C-ANCA <1:20 Titer (<1:20)
[2023-11-14 19:39] LABS: Lysozyme, Serum or Body Fluid 9.9 mcg/mL (5.0-11.0)
== END | disposition home or self-care (01) ==
LOC: LABWHC1 10:40
PROVIDERS: ATTEND Optometrist
DX: L23.9 Allergic contact dermatitis, unspecified cause (principal)
CPT/HCPCS: 36415; 82164; 85549; 85652; 86038; 86140; 86255; 86431; 86618; 86812

== ENCOUNTER → 2024-02-14 | Outpatient (CLI) | payer BC ==
--- NOTE | 2024-02-15 13:09 | MM ---
Reason for Exam: Screening (asymptomatic). Last mammogram was performed 6 year(s) and 0 month(s) ago. Patient History: Menarche at age 10. First Full-Term at age 30. Postmenopausal. Risk Values: Mallika 5 year model risk: 1.9%. NCI Lifetime model risk: 8.4%. Prior Study Comparison: 09/25/2015 Bilateral Screening Mammogram, [facility]. 10/19/2016 Bilateral Diagnostic Mammogram, [facility]. 03/03/2018 Bilateral Screening Mammogram, [facility]. Tissue Density: There are scattered areas of fibroglandular density. Findings: Analyzed By CAD. There is no suspicious group of microcalcifications or new suspicious mass in either breast. Overall Assessment: Negative, BI-RAD 1 Management: Screening Mammogram of both breasts in 1 year. . Patient should continue monthly self-breast exams. A clinical breast exam by your physician is recommended on an annual basis. This exam should not preclude additional follow-up of suspicious palpable abnormalities. Note on Mallika scores and lifetime risk: 1. A Mallika score greater than 3% is considered moderate risk. If this is the case, consider specialist referral to assess eligibility for a risk reducing agent. 2. If overall lifetime risk for the development of breast cancer is 20% or higher, the patient may qualify for future screening with alternating mammogram and breast MRI. Electronically signed and approved by: Malachi Olea M.D. Radiolog[facility]
== END | disposition home or self-care (01) ==
LOC: RADMAMWWP 08:51
PROVIDERS: ATTEND Family Medicine
DX: Z12.31 Encounter for screening mammogram for malignant neoplasm of breast (principal); Z78.0 Asymptomatic menopausal state
CPT/HCPCS: 77067